=== PATIENT | male | born 1985 | race Caucasian/White ===

== ENCOUNTER 2024-01-16 17:32 | Emergency (ER) | payer MEDICAID ==
[~2024-01-16] VITALS: Ht 170.2 cm; Wt 82.0 kg
[2024-01-16 17:37] VITALS: O2SAT 97
[2024-01-16] MEDS: CLINDAMYCIN PHOSPHATE 600MG/4ML VIAL IM ONE (19:15)
[2024-01-16 19:45] LABS: BASOPHILS % 0.5 % (0.0-2.0); EOSINOPHILS % 5.5 % (0.0-5.0); HEMATOCRIT. 38.1 % (42.0-52.0); LYMPHOCYTES % 10.4 % (20.0-50.0); MEAN CORPUSCULAR HGB CONC 34.2 g/dL (31.0-37.0); MEAN CORPUSCULAR VOLUME 84.9 fL (80.0-94.0); MEAN PLATELET VOLUME 8.4 fl (7.4-10.4); MONOCYTES % 5.6 % (2.0-8.0); PLATELET 255 x1000/uL (130-400); RED BLOOD CELL COUNT 4.49 mill/uL (4.7-6.1); RED CELL DISTRIBUTION WIDTH 14.1 % (11.6-14.6); WHITE BLOOD COUNT 9.9 x1000/uL (4.5-11.0)
[2024-01-16 19:51] LABS: INR 0.9; PROTHROMBIN TIME 10.3 sec (9.6-11.0)
[2024-01-16] MEDS: TETANUS, DIPHTHERIA, PERTUSSIS VAC/PF 0.5ML (>10YR OLD) IM ONE (19:53)
[2024-01-16 19:56] LABS: ALBUMIN 4.7 g/dL (3.2-4.8); CARBON DIOXIDE 28 mEq/L (21-32); CHLORIDE 102 mEq/L (98-107); CREATININE 0.8 mg/dL (0.6-1.3); GLUCOSE 124 mg/dL (70-105); POTASSIUM 3.8 mEq/L (3.5-5.1); PROTEIN TOTAL 8.1 g/dL (6.0-8.3); SODIUM 137 mEq/L (136-145); UREA NITROGEN BLOOD 6 mg/dL (9-23)
[2024-01-16 19:57] LABS: ALANINE AMINOTRANSFERASE 34 IU/L (10-49); ASPARTATE AMINOTRANSFERASE 27 IU/L (<34); BILIRUBIN TOTAL 0.2 mg/dL (0.1-1.0)
[2024-01-16] MEDS: LIDOCAINE HCL/PF 1% 10 MG/ML 5ML VIAL INFIL ONE (19:59)
[2024-01-16] MEDS ORDERED: CLIN-194 MT (20:19)
[2024-01-16] MEDS ORDERED: IBUP-2030 MT (20:20)
[2024-01-16 20:34] VITALS: BP 133/77; PULSE 90; RESP 18; TEMP 98.5
== END 2024-01-16 20:50 | disposition home or self-care (01) ==
LOC: ER 17:32
DX: L02.414 Cutaneous abscess of left upper limb (principal); L03.012 Cellulitis of left finger; Z90.49 Acquired absence of other specified parts of digestive tract
CPT/HCPCS: 99284; 10060; 80053; 85025; 85610; 87040; 36415; 90715; 90471; 96372; J3490 ×2